=== PATIENT | female | born 1995 | race Caucasian/White ===

== ENCOUNTER 2020-04-12 12:49 | Outpatient (REF) | payer OTHER, SELFPAY | END 2020-04-12 12:50 | disposition home or self-care (01) | LOC: HO.LAB 12:49 | PROVIDERS: Visit Provider Internal Medicine | DX: Z20.822 Contact with and (suspected) exposure to COVID-19 (principal) | CPT/HCPCS: 36415; C9803; U0003 ==

== ENCOUNTER 2020-05-05 12:15 | Emergency (ER) | payer OTHER, SELFPAY ==
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
[2020-05-05 12:33] VITALS: BP 119/73; PULSE 100; RESP 16; TEMP 37.3; O2SAT 97; BMI 24.1
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
[2020-05-05] MEDS: oxyCODONE HCl Immed Release 5 MG TABLET PO (13:06)
[2020-05-05] MEDS: Acetaminophen 325 MG TABLET 975 MG PO (13:07)
[2020-05-05 13:35] LABS: UPreg QC Valid YES; Urine Pregnancy NEGATIVE (NEGATIVE)
[2020-05-05 15:27] VITALS: BP 115/73; PULSE 90; RESP 14; TEMP 36.8; O2SAT 97
== END 2020-05-05 16:36 | disposition home or self-care (01) ==
PROVIDERS: Physician Assistant; Emergency Provider Emergency Medicine Emergency Medical Services; PCP Internal Medicine
DX: R07.82 Intercostal pain (principal); R07.81 Pleurodynia; R05 Cough; R06.02 Shortness of breath; F17.200 Nicotine dependence, unspecified, uncomplicated; Z71.6 Tobacco abuse counseling; F12.90 Cannabis use, unspecified, uncomplicated
CPT/HCPCS: 71250; 81025; 99284

== ENCOUNTER → 2020-05-10 13:58 | Outpatient (BNVA) | payer OTHER, SELFPAY | PROVIDERS: Visit Provider Physician Assistant | DX: S82.892A Other fracture of left lower leg, initial encounter for closed fracture (principal); S42.001A Fracture of unspecified part of right clavicle, initial encounter for closed fracture | CPT/HCPCS: 99202 ==

== ENCOUNTER 2020-05-24 07:25 | Outpatient (REF) | payer OTHER, SELFPAY ==
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
== END 2020-05-24 07:26 | disposition home or self-care (01) ==
LOC: HO.HOSX 07:25
PROVIDERS: Visit Provider Physician Assistant
DX: S42.021G Displaced fracture of shaft of right clavicle, subsequent encounter for fracture with delayed healing (principal)
CPT/HCPCS: 73000; 99212

== ENCOUNTER 2020-05-30 07:10 | Day surgery (SDC) | payer OTHER, SELFPAY ==
[2020-05-29 09:50] VITALS: BMI 24.1
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
[2020-05-30] VITALS (10 sets, daily range): BP systolic 107–125; BP diastolic 51–73; PULSE 70–101; RESP 16–18; TEMP 36.3–37.2; O2SAT 94–97; BMI 24.1
--- NOTE | ~2020-05-30 | FL_ITS ---
EXAMINATION: XR FLUOROSCOPY WITH IMAGES CLINICAL INFORMATION: Right clavicular fracture, reduction. COMPARISON: Radiographs right clavicle 05/24/2020. TECHNIQUE: Fluoroscopy performed by Dr. aCrmelo Westfall. Fluoroscopy time: under 1 minute DAP: 0.0071 mGycm2 Images: 3 FINDINGS: The clavicular fracture is reduced with superior plate and multiple screws. Fracture fragments are in near-anatomic alignment and the hardware is intact. FL/FL guidance in OR IMPRESSION: Status post reduction right clavicular fracture.
--- NOTE | 2020-05-30 07:20 | MHC.SHP ---
Pre-Procedural Eval Section A The patient is an INPATIENT: No Changes since office visit: No Cold of Flu in the past 2 weeks, No New Medical Problems, No Changes in Medication and No Patient answered all questions The History & Physical has been completed within 30 days and I have reviewed it.: Yes Section B Chief Complaint: fx clavicle Allergies: Allergies Allergy/AdvReac Type Severity Reaction Status Date / Time metoclopramide [From REGLAN] Allergy Intermediate DISTONIC Verified 05/24/20 11:08 REACTION antiemetic in ED (unsure of Allergy Unknown anxiety Uncoded 05/17/20 13:55 na Plan I have reviewed the history and physical and performed a pertinent physical examination on my patient. No changes have occurred unless specified.
[2020-05-30 07:58] LABS: UPreg QC Valid YES; Urine Pregnancy NEGATIVE (NEGATIVE)
[2020-05-30] MEDS: Lactated Ringers 1,000 ML 100 ML IVCONT (08:56)
[2020-05-30] MEDS: Ketorolac Tromethamine 15 MG/ML VIAL IVPUSH (11:42)
[2020-05-30] MEDS: HYDROmorphone HCl 0.5 MG/0.5 ML SYRINGE 0.25 MG IVPUSH ×2 (12:04→12:17)
[2020-05-30] MEDS: oxyCODONE HCl Immed Release 5 MG TABLET PO (12:24)
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
== END 2020-05-30 13:35 | disposition home or self-care (01) ==
PROVIDERS: Nurse Practitioner; PCP Internal Medicine; Visit Provider Orthopaedic Surgery
PROC: (CPT 23515; principal; 2020-05-30 09:10)
DX: S42.021A Displaced fracture of shaft of right clavicle, initial encounter for closed fracture (principal); V49.9XXA Car occupant (driver) (passenger) injured in unspecified traffic accident, initial encounter; Y93.89 Activity, other specified; Y92.410 Unspecified street and highway as the place of occurrence of the external cause; Y99.8 Other external cause status; F12.90 Cannabis use, unspecified, uncomplicated; F17.210 Nicotine dependence, cigarettes, uncomplicated; Z87.81 Personal history of (healed) traumatic fracture; Z88.8 Allergy status to other drugs, medicaments and biological substances
CPT/HCPCS: 23515; 81025; C1713; J0131; J0690; J1100; J1170; J1885; J2250; J2405

== ENCOUNTER 2020-06-12 08:17 | Outpatient (REF) | payer OTHER, SELFPAY ==
--- NOTE | ~2020-06-12 | XR_ITS ---
EXAMINATION: RIGHT ANKLE AND RIGHT CLAVICLE X-RAY CLINICAL INFORMATION: Fractures COMPARISON: Previous right clavicle x-ray 05/24/2020 fluoroscopy exam 05/30/2020 TECHNIQUE: 2 views of the right clavicle and 3 views of the right ankle FINDINGS: Right clavicle: There is a new plate and screws transfixing the right mid clavicle fracture with anatomic alignment. Fracture line still seen. Orthopedic hardware unchanged. Soft tissues are unremarkable. Left ankle: Bone alignment is normal. No fracture or dislocation is seen. There is small soft tissue ossifications inferior to the medial malleolus likely related to old trauma. The ankle mortise is normal. Soft tissues are otherwise normal. XR/XR ankle LT min 3V IMPRESSION: Right clavicle: ORIF of right clavicle fracture. Left ankle: No acute fracture or dislocation.
--- NOTE | ~2020-06-12 | XR_ITS ---
EXAMINATION: RIGHT ANKLE AND RIGHT CLAVICLE X-RAY CLINICAL INFORMATION: Fractures COMPARISON: Previous right clavicle x-ray 05/24/2020 fluoroscopy exam 05/30/2020 TECHNIQUE: 2 views of the right clavicle and 3 views of the right ankle FINDINGS: Right clavicle: There is a new plate and screws transfixing the right mid clavicle fracture with anatomic alignment. Fracture line still seen. Orthopedic hardware unchanged. Soft tissues are unremarkable. Left ankle: Bone alignment is normal. No fracture or dislocation is seen. There is small soft tissue ossifications inferior to the medial malleolus likely related to old trauma. The ankle mortise is normal. Soft tissues are otherwise normal. XR/XR clavicle RT IMPRESSION: Right clavicle: ORIF of right clavicle fracture. Left ankle: No acute fracture or dislocation.
== END 2020-06-12 08:18 | disposition home or self-care (01) ==
LOC: HO.HOSX 08:17
PROVIDERS: Visit Provider Physician Assistant
DX: S42.001G Fracture of unspecified part of right clavicle, subsequent encounter for fracture with delayed healing (principal); S82.402D Unspecified fracture of shaft of left fibula, subsequent encounter for closed fracture with routine healing
CPT/HCPCS: 73000; 73610

== ENCOUNTER 2020-07-10 08:28 | Outpatient (REF) | payer OTHER, SELFPAY | END 2020-07-10 08:29 | disposition home or self-care (01) | LOC: HO.HOSX 08:28 | PROVIDERS: Visit Provider Physician Assistant | DX: Z13.89 Encounter for screening for other disorder (principal) ==

== ENCOUNTER 2020-07-18 08:28 | Outpatient (REF) | payer OTHER, SELFPAY | END 2020-07-18 08:29 | disposition home or self-care (01) | LOC: HO.HOSX 08:28 | PROVIDERS: Visit Provider Physician Assistant | DX: Z13.89 Encounter for screening for other disorder (principal) ==

== ENCOUNTER → 2020-10-30 11:31 | Outpatient (BNVA) | payer OTHER, SELFPAY | PROVIDERS: PCP Internal Medicine; Visit Provider Advanced Practice Midwife | DX: Z32.01 Encounter for pregnancy test, result positive (principal) | CPT/HCPCS: 81025; 99212 ==

== ENCOUNTER → 2020-11-13 14:05 | Outpatient (BNVA) | payer OTHER, SELFPAY | PROVIDERS: PCP Internal Medicine; Visit Provider Advanced Practice Midwife | DX: O99.331 Smoking (tobacco) complicating pregnancy, first trimester (principal); O99.341 Other mental disorders complicating pregnancy, first trimester; F41.8 Other specified anxiety disorders; O9A.211 Injury, poisoning and certain other consequences of external causes complicating pregnancy, first trimester; Z3A.08 8 weeks gestation of pregnancy; Z88.8 Allergy status to other drugs, medicaments and biological substances | CPT/HCPCS: 99212 ==

== ENCOUNTER 2020-11-29 13:06 | Outpatient (REF) | payer OTHER, SELFPAY ==
--- NOTE | ~2020-11-29 | US_ITS ---
EXAMINATION: OBSTETRICAL ULTRASOUND, FIRST TRIMESTER HISTORY: 25-year-old at 11.0 weeks of gestation NT screening COMPARISON: None TECHNIQUE: Real time transabdominal imaging with color and M-mode Doppler. FINDINGS: A single, live IUP CRL of 49.7 mm c/w 11.5wks is noted. Heart Rate: 169 beats per minute. Normal yolk sac seen. NT was 0.55.mm. NB Present The embryo appears sonographically wnl for this GA. Both maternal ovaries are seen and appear normal. GESTATIONAL AGE: 1. Established GA: 11.0 wks 2. GA from AUA: 11.5 wks ESTIMATED DATE OF DELIVERY: 1. Established KIKI: 06/20/2021 2. KIKI from A: 06/15/2021 US/US OB 1T nuc measure IMPRESSION: 1. A single live IUP 2. Size equals dates 3. NT of 0.55 mm MFM Consultation: I reviewed the ultrasound findings along with significance of NT measurement. The NT of less than 3mm is generally reassuring. However, the sensitivity for T21 detection is only 60%. I reviewed the availability of serum aneuploidy screening which includes cell-free DNA and placental protein based tests. I discussed the sensitivity, false-positive rate, and other limitations associated with each test. I also reviewed the availability of invasive diagnostic tests that are associated small but definite risk of miscarriage. We also reviewed the differences between screening tests and diagnostic tests. After our discussion, she opted for the First trimester screening that is based on cell-free DNA or non-invasive testing (NIPT). A follow up at 18-20 weeks for survey has been scheduled. Thank you very much for this referral. Total time 30 minutes. The time spent was devoted to counseling the patient about the disease and diagnosis, coordinating care including reviewing her records, pertinent lab data and studies, as well as discussing diagnostic evaluation and workup, plan therapeutic interventions and future disposition of care. This includes any additional research needed to obtain further information in formulating the plan of care of this patient. This note was generated with a voice recognition program. Please excuse any errors which may have been overlooked during my review of this note. Sometimes these errors may affect the content or meaning of a given sentence.
== END 2020-11-29 13:07 | disposition home or self-care (01) ==
LOC: HO.US 13:06
PROVIDERS: PCP Internal Medicine; Visit Provider Advanced Practice Midwife
DX: Z36.82 Encounter for antenatal screening for nuchal translucency (principal)
CPT/HCPCS: 76813

== ENCOUNTER 2020-12-02 10:21 | Outpatient (REF) | payer OTHER, SELFPAY ==
[2020-12-02 12:05] LABS: Hematocrit 37.2 % (37-47); Hemoglobin 12.8 g/dl (12.0-16.0); Mean Corpuscular HGB Conc 34.4 g/dl (31.0-35.0); Mean Platelet Volume 10.4 fL (9.4-12.3); Platelet Count 335 X10*3/uL (160-400); Red Cell Distribution Width 11.8 % (11.0-16.0); White Blood Count 10.8 X10*3/uL (4.8-10.8)
[2020-12-02 12:32] LABS: Syphilis Screen Nonreactive (Nonreactive)
[2020-12-02 14:00] LABS: Amphetamine Screen Urine Not Detected (Not Detect); Barbiturates, Urine Not Detected (Not Detect); Benzodiazepines Screen Urine Not Detected (Not Detect); Cannabinoid Screen Urine POSITIVE (Not Detect); Cocaine Screen Urine Not Detected (Not Detect); Fentanyl, urine Not Detected (Not Detect); Opiate Screen Urine Not Detected (Not Detect); Phencyclidine Screen Urine Not Detected (Not Detect)
[2020-12-03 08:56] LABS: HBsAGNum1 0.25 S/CO (0.00-0.99); HIV AB/AG Nonreactive (Nonreactive); HIV Num 1 0.08 S/CO (0.00-0.99); Hepatitis B Surface Antigen Negative (Negative); Rubella IgG Antibody 3.04 Index; Varicella IgG Antibody >4000.00 index; ~HepC Num1 0.17 S/CO (0.00-0.79); ~Hepatitis C Antibody Nonreactive (Nonreactive)
== END 2020-12-02 10:22 | disposition home or self-care (01) ==
LOC: HO.LAB 10:21
PROVIDERS: PCP Internal Medicine; Visit Provider Advanced Practice Midwife
DX: Z34.90 Encounter for supervision of normal pregnancy, unspecified, unspecified trimester (principal)
CPT/HCPCS: 80307; 85027; 86762; 86780; 86787; 86803; 86850; 86900; 86901; 87086; 87088; 87186; 87340; 87389

== ENCOUNTER 2020-12-04 11:51 | Outpatient (REF) | payer OTHER, SELFPAY ==
[2020-12-07 14:32] LABS: TS Negative Control Passed; TS Panel A 0; TS Panel B 0; TS Positive Control Passed; TSpotTB Negative (SeeBelow)
== END 2020-12-04 11:52 | disposition home or self-care (01) ==
LOC: HO.HMGCLDS 11:51
PROVIDERS: PCP Internal Medicine; Visit Provider Internal Medicine
DX: Z00.00 Encounter for general adult medical examination without abnormal findings (principal)
CPT/HCPCS: 36415; 86481

== ENCOUNTER 2021-01-06 10:12 | Outpatient (REF) | payer OTHER, SELFPAY ==
[2021-01-06 13:50] LABS: CT PCR NOT DETECTED (Not Detect.); NG PCR NOT DETECTED (Not Detect.)
[2021-01-07 11:38] LABS: BV Int Neg Control Negative (Negative); BV Int Pos Control Positive (Positive)
== END 2021-01-06 10:13 | disposition home or self-care (01) ==
LOC: HO.LAB 10:12
PROVIDERS: PCP Internal Medicine; Visit Provider Advanced Practice Midwife
DX: O99.332 Smoking (tobacco) complicating pregnancy, second trimester (principal); O99.322 Drug use complicating pregnancy, second trimester; F12.10 Cannabis abuse, uncomplicated; Z3A.24 24 weeks gestation of pregnancy; Z3A.16 16 weeks gestation of pregnancy; Z83.3 Family history of diabetes mellitus; Z88.8 Allergy status to other drugs, medicaments and biological substances
CPT/HCPCS: 87480; 87491; 87510; 87591; 87660; 88142; 99212

== ENCOUNTER → 2021-02-20 10:30 | Outpatient (BNVA) | payer OTHER, SELFPAY | PROVIDERS: PCP Internal Medicine; Visit Provider Advanced Practice Midwife | DX: Z34.82 Encounter for supervision of other normal pregnancy, second trimester (principal); Z3A.22 22 weeks gestation of pregnancy | CPT/HCPCS: 99212 ==

== ENCOUNTER → 2021-02-26 13:05 | Outpatient (BNVA) | payer OTHER, SELFPAY | PROVIDERS: PCP Internal Medicine; Visit Provider Advanced Practice Midwife | DX: O24.419 Gestational diabetes mellitus in pregnancy, unspecified control (principal); Z3A.23 23 weeks gestation of pregnancy | CPT/HCPCS: 99211 ==

== ENCOUNTER → 2021-03-05 12:15 | Outpatient (BNVA) | payer OTHER, SELFPAY | PROVIDERS: PCP Internal Medicine; Visit Provider Obstetrics & Gynecology | DX: Z34.82 Encounter for supervision of other normal pregnancy, second trimester (principal); Z3A.24 24 weeks gestation of pregnancy | CPT/HCPCS: 99212 ==

== ENCOUNTER 2021-03-12 14:06 | Outpatient (REF) | payer OTHER, SELFPAY | END 2021-03-12 14:07 | disposition home or self-care (01) | LOC: HO.LAB 14:06 | PROVIDERS: PCP Internal Medicine; Visit Provider Obstetrics & Gynecology | DX: O09.892 Supervision of other high risk pregnancies, second trimester (principal); R87.613 High grade squamous intraepithelial lesion on cytologic smear of cervix (HGSIL); O99.332 Smoking (tobacco) complicating pregnancy, second trimester; Z3A.25 25 weeks gestation of pregnancy; Z88.8 Allergy status to other drugs, medicaments and biological substances; Z83.3 Family history of diabetes mellitus | CPT/HCPCS: 57454; 88142; 99212 ==

== ENCOUNTER 2021-03-21 10:22 | Outpatient (REF) | payer OTHER, SELFPAY ==
--- NOTE | ~2021-03-21 | US_ITS ---
EXAMINATION: US OBSTETRICAL CLINICAL INFORMATION: A 25-year-old at the 27.0 weeks of gestation Screening for anomaly COMPARISON: 11/29/2020 TECHNIQUE: Real-time transabdominal ultrasound was performed using C1-5 megahertz transducer. FINDINGS: A single, active, fetus is seen in breech presentation. The placenta is anterior without previa, and the amniotic fluid volume is wnl. MEASUREMENTS: 1. Biparietal Diameter: 7.1 cm; 28.3 wks 2. Occipital Frontal Diameter: 10.0 cm 3. Head Circumference: 27.4 cm; 30.0 wks 4. Abdominal Circumference: 22.7 cm; 27.1 wks 5. Femur Length: 5.1 cm; 27.4 wks 6. Humerus Length: 5.3 cm; 30.4 wks 7. Tibia Length: 4.8 cm; 29.0 wks 8. Lateral ventricle: 0.48 cm 9. Cerebellum: 3.32 cm; 30.3 wks 10. Cisterna Magna: 0.8 cm 11. Nuchal Fold: N/A mm 12. Heart Rate: 151 beats per minute Rt ovary: Unable to visualize Lt ovary: Unable to visualize Cervical length 3.8 cm on T/A. GESTATIONAL AGE: 1. Established GA: 27.0 wks 2. GA from [facility]: 28.2 wks ESTIMATED DATE OF DELIVERY: 1. Established KIKI: The 06/20/2021 2. KIKI from [facility]: 06/15/2021 ANATOMY: The visualized anatomy includes but not limited to: 1. Cranium: Normal 2. Intracranial anatomy: cavum septum pellucidi, lateral ventricles, choroid plexus, cerebellum, posterior fossa, third and fourth ventricles. 3. face: orbits, lip/palate, profile, nasal bone 4. Heart: four-chamber view of the heart, ventricular septum, foramen ovale, pulmonary vein, left and right outflow tracts, three-vessel view, 3 vessel trachea view, aortic and ductal arches, situs.. 5. Diaphragm: Normal 6. Abdominal wall: Normal 7. Cord Insertion: Normal 8. Spine: Cervical, thoracic, lumbar, sacral. 9. Stomach: Normal size and shape 10. Right Kidney: Normal 11. Left Kidney: Normal 12. 3 vessel cord: Normal 13. Upper extremity: Open hands, fifth digit. 14. Lower extremity: Tibia, fibula, bilateral feet. 15. Bladder: Normal 16. Genitalia: Male, patient aware US/US OB /maternal detail IMPRESSION: 1. Single, living, intrauterine with appropriate biometry. 2. Normal survey DISCUSSION: I reviewed today's ultrasound findings. We discussed the limitations of ultrasound in diagnosing aneuploidy and other congenital abnormalities. I reviewed the differences between screening test and diagnostic test. Amniocentesis was discussed and declined. She was informed that the baseline incidence of congenital abnormalities is approximately 3-5%. Not all these conditions are diagnosable in utero. She had the normal of NT evaluation by me. Reportedly the NIPT was low risk. Although she she had the second trimester ultrasound at the [facility], the report is not available, and the images are missing. RECOMMENDATIONS: At this time, a follow-up has not been scheduled. Thank you for allowing me to participate in her care. Total time 30 minutes. The time spent was devoted to counseling the patient about the disease and diagnosis, coordinating care including reviewing her records, pertinent lab data and studies, as well as discussing diagnostic evaluation and workup, plan therapeutic interventions and future disposition of care. This includes any additional research needed to obtain further information in formulating the plan of care of this patient. This note was generated with a voice recognition program. Please excuse any errors which may have been overlooked during my review of this note. Sometimes these errors may affect the content or meaning of a given sentence.
== END 2021-03-21 10:23 | disposition home or self-care (01) ==
LOC: HO.US 10:22
PROVIDERS: PCP Internal Medicine; Visit Provider Obstetrics & Gynecology
DX: Z34.82 Encounter for supervision of other normal pregnancy, second trimester (principal); Z3A.27 27 weeks gestation of pregnancy
CPT/HCPCS: 76811

== ENCOUNTER 2021-04-17 12:18 | Outpatient (REF) | payer OTHER, SELFPAY ==
[2021-04-17 14:33] LABS: Hematocrit 30.6 % (37.0-47.0); Hemoglobin 10.1 g/dl (12.0-16.0); Mean Corpuscular Hemoglobin 30.7 pg (27.0-33.0); Mean Platelet Volume 9.9 fL (9.4-12.3); Platelet Count 310 X10*3/uL (160-400); Red Blood Count 3.29 X10*6/uL (4.20-5.50); Red Cell Distribution Width 13.1 % (11.0-16.0); White Blood Count 12.8 X10*3/uL (4.8-10.8)
[2021-04-17 14:55] LABS: Glucose 1 Hour PP 50gm Dose 110 mg/dL (60-140)
[2021-04-18 08:30] LABS: Syphilis Screen Nonreactive (Nonreactive)
== END 2021-04-17 12:19 | disposition home or self-care (01) ==
LOC: HO.LAB 12:18
PROVIDERS: PCP Internal Medicine; Visit Provider Obstetrics & Gynecology
DX: Z34.83 Encounter for supervision of other normal pregnancy, third trimester (principal); Z3A.30 30 weeks gestation of pregnancy
CPT/HCPCS: 36415; 85027; 86780; 99212

== ENCOUNTER 2021-05-01 12:52 | Outpatient (REF) | payer OTHER, SELFPAY ==
[2021-05-01 17:01] LABS: CT PCR NOT DETECTED (Not Detect.); NG PCR NOT DETECTED (Not Detect.)
== END 2021-05-01 12:53 | disposition home or self-care (01) ==
LOC: HO.LAB 12:52
PROVIDERS: PCP Internal Medicine; Visit Provider Obstetrics & Gynecology
DX: Z11.3 Encounter for screening for infections with a predominantly sexual mode of transmission (principal); N89.8 Other specified noninflammatory disorders of vagina
CPT/HCPCS: 87491; 87591; 99212

== ENCOUNTER → 2021-05-19 09:07 | Outpatient (BNVA) | payer OTHER, SELFPAY | PROVIDERS: Visit Provider Advanced Practice Midwife | DX: O99.333 Smoking (tobacco) complicating pregnancy, third trimester (principal); F17.210 Nicotine dependence, cigarettes, uncomplicated; O99.513 Diseases of the respiratory system complicating pregnancy, third trimester; J45.909 Unspecified asthma, uncomplicated; O99.343 Other mental disorders complicating pregnancy, third trimester; F41.8 Other specified anxiety disorders; Z3A.35 35 weeks gestation of pregnancy | CPT/HCPCS: 81003; 99212 ==

== ENCOUNTER → 2021-07-18 09:50 | Outpatient (BNVA) | payer OTHER, SELFPAY | PROVIDERS: PCP Internal Medicine; Visit Provider Advanced Practice Midwife | DX: Z39.2 Encounter for routine postpartum follow-up (principal); Z30.42 Encounter for surveillance of injectable contraceptive; R87.613 High grade squamous intraepithelial lesion on cytologic smear of cervix (HGSIL) | CPT/HCPCS: 99212 ==

== ENCOUNTER 2021-08-13 14:29 | Outpatient (REF) | payer OTHER, SELFPAY | END 2021-08-13 14:30 | disposition home or self-care (01) | LOC: HO.LAB 14:29 | PROVIDERS: Visit Provider Obstetrics & Gynecology | DX: R87.613 High grade squamous intraepithelial lesion on cytologic smear of cervix (HGSIL) (principal) | CPT/HCPCS: 57454; 81025; 88142; 88305 ==

== ENCOUNTER → 2021-09-17 14:58 | Outpatient (BNVA) | payer OTHER, SELFPAY | PROVIDERS: PCP Internal Medicine; Visit Provider Obstetrics & Gynecology | DX: R87.613 High grade squamous intraepithelial lesion on cytologic smear of cervix (HGSIL) (principal) | CPT/HCPCS: 99212 ==

== ENCOUNTER 2022-03-09 11:07 | Outpatient (REF) | payer OTHER, SELFPAY ==
[2022-03-13 05:48] LABS: HPV mRNA E6/E7 rflx Not Detected (Not Detected)
== END 2022-03-09 11:08 | disposition home or self-care (01) ==
LOC: HO.LNP 11:07
PROVIDERS: PCP Internal Medicine; Visit Provider Obstetrics & Gynecology
DX: Z12.4 Encounter for screening for malignant neoplasm of cervix (principal); Z11.51 Encounter for screening for human papillomavirus (HPV); R87.613 High grade squamous intraepithelial lesion on cytologic smear of cervix (HGSIL)
CPT/HCPCS: 57454; 81025; 87624; 88142; 88305

== ENCOUNTER → 2022-05-21 14:31 | Outpatient (BNVA) | payer OTHER, SELFPAY | PROVIDERS: PCP Internal Medicine; Visit Provider Advanced Practice Midwife | DX: Z32.01 Encounter for pregnancy test, result positive (principal) | CPT/HCPCS: 81025; 99212 ==

== ENCOUNTER 2022-05-22 13:32 | Outpatient (REF) | payer OTHER, SELFPAY ==
[2022-05-22 16:13] LABS: HCG Quantitative 13869 mIU/mL
== END 2022-05-22 13:33 | disposition home or self-care (01) ==
LOC: HO.LAB 13:32
PROVIDERS: PCP Internal Medicine; Visit Provider Advanced Practice Midwife
DX: Z34.90 Encounter for supervision of normal pregnancy, unspecified, unspecified trimester (principal)
CPT/HCPCS: 36415; 84702

== ENCOUNTER 2022-05-28 12:41 | Outpatient (REF) | payer OTHER, SELFPAY ==
--- NOTE | ~2022-05-28 | US_ITS ---
EXAMINATION: US OBSTETRICAL ULTRASOUND CLINICAL INFORMATION: needs dating. COMPARISON: None available. LMP: Unknown. Gestational age by maternal dates is unknown. Estimated date of delivery by maternal dates is unknown. TECHNIQUE: Transabdominal ultrasound was performed. FINDINGS: There is a single intrauterine gestational sac with visible yolk sac, embryo/fetus, and cardiac activity. There is an area of subchorionic hemorrhage seen adjacent to the gestational sac measuring 1.8 x 1.6 x 1.0 cm. HR: 165 beats per minute. CRL (crown rump length): 3.23 cm (10 weeks 1 day +/- 4 days). KIKI (estimated date of delivery): 12/23/2022 +/- 4 days. MATERNAL ADNEXA: The right maternal ovary measures 2.8 x 2.5 x 1.6 cm. The left maternal ovary measures 2.8 x 2.5 x 1.6 which includes a 1.3 x 1.1 x 1.2 cm cyst. There is no significant maternal adnexal mass. No maternal pelvic ascites. US/US OB <= 14 weeks fetus IMPRESSION: 1. Single intrauterine gestation with ultrasound gestational age of 10 weeks 1 day +/- 4 days. 2. Estimated date of delivery is 12/23/2022 +/- 4 days. 3. Subchorionic hemorrhage is present. 4. No maternal adnexal mass or pelvic ascites.
== END 2022-05-28 12:42 | disposition home or self-care (01) ==
LOC: HO.HMGCX 12:41
PROVIDERS: PCP Internal Medicine; Visit Provider Advanced Practice Midwife
DX: Z34.91 Encounter for supervision of normal pregnancy, unspecified, first trimester (principal)
CPT/HCPCS: 76801

== ENCOUNTER → 2022-06-04 12:53 | Outpatient (BNVA) | payer OTHER, SELFPAY | PROVIDERS: PCP Internal Medicine; Visit Provider Advanced Practice Midwife ==

== ENCOUNTER → 2022-06-24 13:33 | Outpatient (BNVA) | payer OTHER, SELFPAY | PROVIDERS: PCP Internal Medicine; Visit Provider Advanced Practice Midwife ==

== ENCOUNTER 2022-06-24 14:25 | Outpatient (REF) | payer OTHER, SELFPAY ==
--- NOTE | ~2022-06-24 | US_ITS ---
EXAMINATION: US OBSTETRICAL ULTRASOUND CLINICAL INFORMATION: Spotting COMPARISON: Previous OB ultrasound 05/28/2022. LMP: 04/10/2022. Gestational age by maternal dates is 10 weeks 5 days. Estimated date of delivery by maternal dates is 01/15/2023. Prior ultrasound indicates estimated date of delivery 12/23/2022 +/- 4 days TECHNIQUE: Transabdominal abdominal OB ultrasound FINDINGS: There is a single viable intrauterine . HR: 157 beats per minute. CRL (crown rump length): 7.3 cm (13 weeks 3 days +/- 4 days). KIKI (estimated date of delivery): 12/27/2022 +/- 4 days. There is a posterior placenta. MATERNAL ADNEXA: The right maternal ovary measures 3.2 x 1.5 x 2.4 cm. The left maternal ovary measures 3.1 x 1.2 x 2.1 cm. There is no significant maternal adnexal mass. No maternal pelvic ascites. US/US OB <= 14 weeks fetus IMPRESSION: 1. Single intrauterine gestation with ultrasound gestational age of 13 weeks 3 days +/- 4 days. 2. Estimated date of delivery is 12/27/2022 +/- 4 days. 3. No maternal adnexal mass or pelvic ascites.
== END 2022-06-24 14:26 | disposition home or self-care (01) ==
LOC: HO.US 14:25
PROVIDERS: Visit Provider Advanced Practice Midwife
DX: O26.851 Spotting complicating pregnancy, first trimester (principal); Z3A.10 10 weeks gestation of pregnancy
CPT/HCPCS: 76801; 99212

== ENCOUNTER → 2022-06-25 13:43 | Outpatient (BNVA) | payer OTHER, SELFPAY | PROVIDERS: Visit Provider Advanced Practice Midwife | DX: Z34.81 Encounter for supervision of other normal pregnancy, first trimester (principal); Z3A.14 14 weeks gestation of pregnancy | CPT/HCPCS: 99212 ==

== ENCOUNTER → 2022-07-08 11:20 | Outpatient (BNVA) | payer OTHER, SELFPAY | PROVIDERS: Visit Provider Advanced Practice Midwife | DX: O21.9 Vomiting of pregnancy, unspecified (principal); O99.342 Other mental disorders complicating pregnancy, second trimester; F43.21 Adjustment disorder with depressed mood; F41.9 Anxiety disorder, unspecified; F32.A Depression, unspecified; O99.332 Smoking (tobacco) complicating pregnancy, second trimester; F17.210 Nicotine dependence, cigarettes, uncomplicated; Z3A.16 16 weeks gestation of pregnancy; F12.20 Cannabis dependence, uncomplicated | CPT/HCPCS: 81003; 99212 ==

== ENCOUNTER → 2022-08-05 10:40 | Outpatient (BNVA) | payer OTHER, SELFPAY | PROVIDERS: Visit Provider Advanced Practice Midwife | DX: Z34.82 Encounter for supervision of other normal pregnancy, second trimester (principal); Z3A.20 20 weeks gestation of pregnancy | CPT/HCPCS: 81003; 99212 ==

== ENCOUNTER → 2022-08-19 14:59 | Outpatient (BNVA) | payer OTHER, SELFPAY | PROVIDERS: Visit Provider Obstetrics & Gynecology | DX: O99.342 Other mental disorders complicating pregnancy, second trimester (principal); F41.9 Anxiety disorder, unspecified; F32.A Depression, unspecified; O99.012 Anemia complicating pregnancy, second trimester; D64.9 Anemia, unspecified; O99.332 Smoking (tobacco) complicating pregnancy, second trimester; F17.200 Nicotine dependence, unspecified, uncomplicated; Z63.4 Disappearance and death of family member; Z3A.22 22 weeks gestation of pregnancy | CPT/HCPCS: 99212 ==

== ENCOUNTER → 2022-09-25 14:33 | Outpatient (BNVA) | payer OTHER, SELFPAY | PROVIDERS: PCP Internal Medicine; Visit Provider Advanced Practice Midwife | DX: O99.332 Smoking (tobacco) complicating pregnancy, second trimester (principal); F17.210 Nicotine dependence, cigarettes, uncomplicated; O99.342 Other mental disorders complicating pregnancy, second trimester; F43.21 Adjustment disorder with depressed mood; Z3A.27 27 weeks gestation of pregnancy | CPT/HCPCS: 81003; 99212 ==

== ENCOUNTER 2023-12-06 10:10 | Outpatient (AMB) | payer MEDICAID, SELFPAY ==
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
[2023-12-06 10:21] VITALS: BP 100/60; BMI 34.1
== END 2023-12-06 10:47 | disposition home or self-care (01) ==
PROVIDERS: PCP Internal Medicine; Visit Provider Obstetrics & Gynecology
DX: Z30.09 Encounter for other general counseling and advice on contraception (principal)
CPT/HCPCS: 99213

== ENCOUNTER → 2023-12-06 10:10 | Outpatient (BNVA) | payer MEDICAID, SELFPAY | PROVIDERS: PCP Internal Medicine; Visit Provider Obstetrics & Gynecology | DX: Z30.09 Encounter for other general counseling and advice on contraception (principal) | CPT/HCPCS: 99212 ==

== ENCOUNTER 2023-12-13 10:28 | Outpatient (AMB) | payer OTHER, SELFPAY ==
[2023-12-13 10:31] VITALS: BP 124/80; PULSE 82; O2SAT 98; BMI 34.1
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
== END 2023-12-13 11:20 | disposition home or self-care (01) ==
PROVIDERS: PCP Internal Medicine; Visit Provider Physician Assistant
DX: S99.922A Unspecified injury of left foot, initial encounter (principal); M79.672 Pain in left foot

== ENCOUNTER → 2023-12-13 10:28 | Outpatient (BNVA) | payer OTHER, SELFPAY | PROVIDERS: PCP Internal Medicine ==

== ENCOUNTER 2023-12-13 10:49 | Outpatient (REF) | payer OTHER, SELFPAY ==
--- NOTE | ~2023-12-13 | XR_ITS ---
EXAMINATION: XR FOOT, LEFT CLINICAL INFORMATION: Left foot injury and pain COMPARISON: Left ankle x-ray on 06/12/2020 TECHNIQUE: AP, lateral, and oblique views of the left foot. FINDINGS: BONES: Bony structures are intact. A well-corticated bone body is seen at medial proximal dorsal border of the left navicular. There is no focal bone destruction or periosteal reaction seen. JOINTS: Alignment of joints is normal. SOFT TISSUE: Soft tissue is normal. No radiopaque foreign body or abnormal air collection is seen. XR/XR foot LT min 3V IMPRESSION: 1. Interval broken off of the medial dorsal proximal left navicular osteophyte, forming a loose bone body. 2. No acute fracture or dislocation or signs of osteomyelitis are found. Electronically signed by: Raina Dinero MD 12/13/2023 12:36 PM EDT
== END 2023-12-13 10:50 | disposition home or self-care (01) ==
LOC: HO.HMGCX 10:49
PROVIDERS: PCP Internal Medicine; Visit Provider Physician Assistant
DX: S99.922A Unspecified injury of left foot, initial encounter (principal)
CPT/HCPCS: 73630; 99212

== ENCOUNTER 2023-12-29 13:50 | Outpatient (AMB) | payer OTHER, SELFPAY ==
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
[2023-12-29 14:13] VITALS: BMI 34.1
== END 2023-12-29 14:33 | disposition home or self-care (01) ==
PROVIDERS: PCP Internal Medicine; Visit Provider Physician Assistant
DX: S82.402A Unspecified fracture of shaft of left fibula, initial encounter for closed fracture (principal); S42.009G Fracture of unspecified part of unspecified clavicle, subsequent encounter for fracture with delayed healing
CPT/HCPCS: 99213; G2211

== ENCOUNTER → 2023-12-29 13:50 | Outpatient (BNVA) | payer OTHER, SELFPAY | PROVIDERS: PCP Internal Medicine; Visit Provider Physician Assistant | DX: M79.672 Pain in left foot (principal); S82.402A Unspecified fracture of shaft of left fibula, initial encounter for closed fracture; X58.XXXA Exposure to other specified factors, initial encounter; Y93.9 Activity, unspecified; Y92.9 Unspecified place or not applicable; Y99.9 Unspecified external cause status | CPT/HCPCS: 99212 ==

== ENCOUNTER 2024-01-04 10:24 | Outpatient (AMB) | payer OTHER, SELFPAY ==
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
[2024-01-04 10:33] VITALS: BMI 33.7
== END 2024-01-04 11:23 | disposition home or self-care (01) ==
LOC: HO.HWS 10:24
PROVIDERS: PCP Internal Medicine; Visit Provider Obstetrics & Gynecology
DX: Z30.2 Encounter for sterilization (principal)
CPT/HCPCS: 99213

== ENCOUNTER → 2024-01-04 10:24 | Outpatient (BNVA) | payer OTHER, SELFPAY | PROVIDERS: PCP Internal Medicine; Visit Provider Obstetrics & Gynecology | DX: Z30.2 Encounter for sterilization (principal) | CPT/HCPCS: 99212 ==

== ENCOUNTER 2024-01-14 05:37 | Day surgery (SDC) | payer OTHER, SELFPAY ==
[2024-01-12 09:17] VITALS: BMI 33.8
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
[2024-01-14] VITALS (11 sets, daily range): BP systolic 100–116; BP diastolic 58–65; PULSE 69–85; RESP 12–20; TEMP 36.1–36.9; O2SAT 92–96; BMI 34.6
[2024-01-14 06:20] LABS: UPreg QC Valid YES; Urine Pregnancy NEGATIVE (NEGATIVE)
[2024-01-14] MEDS: Lactated Ringers 1,000 ML 100 ML IVCONT (06:50)
--- NOTE | 2024-01-14 07:28 | MHC.SHP ---
Pre-Procedural Eval Section A - 24 Hr Update-Section A only Date of Service: 01/14/24 The patient is an INPATIENT: No Changes since office visit: No Cold of Flu in the past 2 weeks, No New Medical Problems, No Changes in Medication and No Patient answered all questions The patient has been examined within 24 hours of the surgical procedure. The History & Physical has been completed within 30 days and I have reviewed it.: Yes Section B - Complete if H&P > 30 days Chief Complaint: Encounter for other general counseling and advice Allergies: Allergies Allergy/AdvReac Type Severity Reaction Status Date / Time metoclopramide [From REGLAN] Allergy Intermediate DISTONIC Verified 01/14/24 06:15 REACTION antiemetic Allergy Intermediate anxiety-given Uncoded 01/14/24 06:15 in ED-pt.unsure of name Plan Diagnosis/Plan: Unchanged I have reviewed the history and physical and performed a pertinent physical examination on my patient. No changes have occurred unless specified. Time Spent With Patient Time: Total time managing care of this patient today ____ minutes.
--- NOTE | 2024-01-14 08:52 | PM.OP ---
Brief Operative Note Date of Service: 01/14/24 Pre-op diagnosis: Completed family requesting permanent sterilization Post-op diagnosis: same Procedure: Laparoscopic bliateral salpingectomy Surgeon: Sushant Birmingham MD Anesthesia: GETA Was an Carpenter Cradle And Dolly used for this Procedure?: No Estimated blood loss (mL): 0 Pathology: other (Right & left fallopian tubes) Condition: stable Disposition: PACU
--- NOTE | 2024-01-14 08:52 | W.PM.OPN ---
Operative Note Operative Note Date of Service: 01/14/24 Narrative: PREOPERATIVE DIAGNOSIS:?Completed family requesting?permanent sterilization POSTOPERATIVE DIAGNOSIS:?Completed family requesting?permanent sterilization QBL: Minimal Anesthesia: GETA SURGEON:? Sushant Birmingham MD?? Livestock Yard Attendant: Complications: None Pathology: Right and left Fallopian tubes? DESCRIPTION OF PROCEDURE:?The patient was taken to the OR where general anesthesia was easily obtained. The patient was then prepped and draped in a sterile fashion and placed in dorsal lithotomy position. A speculum was introduced into the patient?s vagina for cervical visualization. Once the cervix was visualized, a single-toothed tenaculum was applied to the upper lip of the cervix, and a Humi manipulator was introduced into the patient?s cervix. The single tooth tenaculum was then removed and hemostasis was assured?using pressure. a Willams catheter?was inserted and clear urine started draining. Gloves were changed to clean ones. Attention was then drawn to the abdomen where a 10 mm longitudinal incision was done intra umbilical and carried down all the way to the fascia, which was tented?up using 2 Shakira clamps and was nicked in the midline and then extended on both end of the incision?, them using 2 pick?ups the peritoneum?was entered with Metzenbaum scissors and under direct visualization, a 10 mm Whitney trocar was introduced into the patient?s abdomen. Once intraperitoneal placement was confirmed with direct visualization, pneumoperitoneum was started & was easily obtained.Then, two fingerbreadths above the pubic symphysis and towards the?right lower quadrant, under direct visualization, a 5 mm trocar was then introduced into the patient?s abdomen. and a 3rd one on the left?lower quadrant was placed?in a similar manner. The patient was placed in Trendelenburg position, Inspection revealed normal pelvic structures & bilateral ovaries and fallopian tubes. Attention was then drawn to the left fallopian tube. The IP ligament was identified and fallopian tube was then grasped by the fimbria and incised from the mesosalpinx using ligasure device, using cautery for hemostasis and cutting afterwards a bite at a time all the way to the cornual end of the left tube. The same was done?on the?right fallopian tube. Good hemostasis was noted from both fallopian tube sites and the operative site. Specimen were then removed from the patient?s abdomen. Copious irrigation was done. Once good hemostasis was noted from the patient?s abdomen, pneumoperitoneum was deflated and all trocars were removed. Infraumbilical fascia was closed with 0 Vicryl and interrupted suture. The skin was closed with 4-0 Vicryl. The Right and left?lower quadrant ports were closed with 0 Vicryl. Bupivicaine 0.25 10 cc were injected subcuticularly in the 3 incisions. Then speculum was put back in the vagina inspection revealed?hemostasis at the site of the tenaculum, the?humi manipulator was removed? and Willams was draining clear urine was taken out too. Sponge, lap and needle counts were correct x2. The patient was taken to the recovery room in stable condition.
[2024-01-14] MEDS: fentaNYL citrate/PF 100 MCG/2 ML VIAL 25 MCG IVPUSH ×2 (09:26→09:35)
[2024-01-14] MEDS: ondansetron HCL 4 MG/2 ML VIAL IVPUSH (09:35)
== END 2024-01-14 10:42 | disposition home or self-care (01) ==
PROVIDERS: PCP Internal Medicine; Visit Provider Obstetrics & Gynecology
PROC: (CPT 58661; 2024-01-14 07:30)
DX: Z30.2 Encounter for sterilization (principal); F41.8 Other specified anxiety disorders; J45.909 Unspecified asthma, uncomplicated; H55.00 Unspecified nystagmus; Z79.899 Other long term (current) drug therapy; Z88.8 Allergy status to other drugs, medicaments and biological substances; Z98.890 Other specified postprocedural states; F17.210 Nicotine dependence, cigarettes, uncomplicated
CPT/HCPCS: 58661; 81025; 88302; J0131; J1100; J2003; J2250; J2405; J2704; J2795; J3010

== ENCOUNTER → 2024-01-14 05:37 | Outpatient (BNV) | payer OTHER, SELFPAY | PROVIDERS: PCP Internal Medicine; Visit Provider Obstetrics & Gynecology | DX: Z30.2 Encounter for sterilization (principal) | CPT/HCPCS: 58661 ==

== ENCOUNTER 2024-01-17 12:47 | Outpatient (AMB) | payer OTHER, SELFPAY ==
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
[2024-01-17 12:54] VITALS: BP 120/72; BMI 34.6
== END 2024-01-17 12:59 | disposition home or self-care (01) ==
LOC: HO.HWS 12:48
PROVIDERS: PCP Internal Medicine; Visit Provider Obstetrics & Gynecology
DX: L25.9 Unspecified contact dermatitis, unspecified cause (principal)
CPT/HCPCS: 99213

== ENCOUNTER → 2024-01-17 12:47 | Outpatient (BNVA) | payer OTHER, SELFPAY | PROVIDERS: PCP Internal Medicine; Visit Provider Obstetrics & Gynecology | DX: Z48.816 Encounter for surgical aftercare following surgery on the genitourinary system (principal); L25.9 Unspecified contact dermatitis, unspecified cause | CPT/HCPCS: 99212 ==

== ENCOUNTER 2024-01-27 09:37 | Outpatient (AMB) | payer OTHER, SELFPAY ==
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
[2024-01-27 10:22] VITALS: BMI 34.5
== END 2024-01-27 10:35 | disposition home or self-care (01) ==
LOC: HO.HWS 09:37
PROVIDERS: PCP Internal Medicine; Visit Provider Obstetrics & Gynecology
DX: Z30.2 Encounter for sterilization (principal)
CPT/HCPCS: 99213

== ENCOUNTER → 2024-01-27 09:37 | Outpatient (BNVA) | payer OTHER, SELFPAY | PROVIDERS: PCP Internal Medicine; Visit Provider Obstetrics & Gynecology | DX: Z30.2 Encounter for sterilization (principal) | CPT/HCPCS: 99212 ==

== ENCOUNTER 2024-06-21 15:49 | Outpatient (AMB) | payer OTHER, SELFPAY ==
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
[2024-06-21 16:01] VITALS: BP 120/70; BMI 34.4
--- OUTSIDE RECORDS SUMMARY | 2024-06-21 17:53 | XMS_ITS | Clinical Summary ---
Author Organization [facility] Address [address] [place] [address] Phone Care Team Providers Care Circular Stuffer Name Role Phone Physician, No Pcp Primary Care Provider Unavaila ble Allergies Active Allergy Reactions Criticality Noted Date Comments Methylphenidate Hcl 05/10/2021 Medications vitamin iron fum-folic acid 27-1 mg per tablet Take 1 tablet by mouth 1 (one) time each day. Active ferrous sulfate 325 mg (65 mg iron) tablet Take 325 mg by mouth 1 (one) time each day with breakfast. Active Social History Tobacco Use Types Packs/Day Years Used Date Smoking Tobacco: Every Day Cigarettes Smokeless Tobacco: Former Tobacco Cessation:Ready to Q uit: Not Asked; Counseling Given: Not Answered Alcohol Use Standard Drinks/Week Comments Never 0 (1 standard drink = 0.6 oz pur e alcohol) Comments Unknown Sex and Gender Information Value Date Recorded Sex Assigned at Female 05/10/2021 6:28 PM EST Legal Sex Female 5:49 PM EST Gender Identity Female 05/10/2021 6:28 PM EST Sexual Orientation Not on file Obstetrics History Para Term AB IAB SAB Ectopic Multiple Livin g Live Births 4 3 Date Outcome GA Total Labor Labor/2nd/3rd Weight Sex Type Anes PTL Amber A1 A5 Name Clin Para Para Para Last Filed Vital Signs Vital Sign Reading Time Taken Comments Blood Pressure 144/90 03/21/2024 11:16 PM EST Pulse 84 03/21/2024 11:16 PM EST Temperature 36.8 ??C (98.2 ??F) 03/21/2024 11:[address] Respiratory Rate 16 03/21/2024 11:16 PM EST Oxygen Saturation 100% 03/21/2024 11:16 PM EST Inhaled Oxygen Concentration - - Weight 93.4 kg (206 lb) 03/21/2024 4:38 PM EST Height 165.1 cm (5' 5 ) 03/21/2024 4:38 PM EST Body Mass Index 34.28 03/21/2024 4:38 PM EST Plan of Treatment Health Maintenance Due Date Last Done Comments Hepatitis B Vaccines (1 of 3 - 19+ 3-dose series) 2012 Pneumococcal Vaccine: Pediatrics (0 to 5 Years) and At-Risk Patients (6 to 64 Years) (1 of 2 - PCV) 2012 Cervical Cancer Screening: P ap Smear 2014 Cholesterol Screening (Lipid Panel) 05/10/2021 Depression Screening 05/10/2021 HIV Screening 05/10/2021 Hepatitis C Screening 05/10/2021 Social Influencers of Health Screening 05/10/2021 COVID-19 Vaccine ( - 2023-2 5 season) 2023 Influenza Vaccine (#1) 2023 DTaP,Tdap,and Td Vaccines (3 - Td or Tdap) 10/29/2032 10/29/2022, 04/30/2020 HIB Vaccines Aged Out No longer eligi ble based on patient's age to complete this topic HPV Vaccines Aged Out No longer eligi ble based on patient's age to complete this topic Hepatitis A Vaccines Aged Out No long er eligible based on patient's age to complete this topic IPV Vaccines Aged Out No longer eligi ble based on patient's age to complete this topic MMR Vaccines Aged Out No longer eligi ble based on patient's age to complete this topic Meningococcal ACWY Vaccine Aged Out N o longer eligible based on patient's age to complete this topic Meningococcal B Vacine Aged Out No lo nger eligible based on patient's age to complete this topic RSV Immunization Patients Under 20 months Aged Out No longer eligible b ased on patient's age to complete this topic Varicella Vaccines Aged Out No longer eligible based on patient's age to complete this topic Insurance MEDICAID - [place] Care Teams Circular Stuffer Relationship Specialty Start Date End Date Physician, No Pcp PCP - General 06/06/21
== END 2024-06-21 16:28 | disposition home or self-care (01) ==
LOC: HO.HMCH 15:49
PROVIDERS: PCP Internal Medicine; Visit Provider Internal Medicine
DX: Z00.00 Encounter for general adult medical examination without abnormal findings (principal); F32.2 Major depressive disorder, single episode, severe without psychotic features; N39.41 Urge incontinence

== ENCOUNTER → 2024-06-21 15:49 | Outpatient (BNVA) | payer OTHER, SELFPAY | PROVIDERS: PCP Internal Medicine; Visit Provider Internal Medicine | DX: Z00.00 Encounter for general adult medical examination without abnormal findings (principal); F32.2 Major depressive disorder, single episode, severe without psychotic features; N39.41 Urge incontinence | CPT/HCPCS: 96127; 99212; 99395 ==

== ENCOUNTER 2024-08-07 08:39 | Outpatient (AMB) | payer OTHER, SELFPAY ==
--- OUTSIDE RECORDS SUMMARY | 2024-08-07 08:46 | XMS_ITS | Clinical Summary ---
Author Organization [facility] Address [address] [place] [address] Phone Care Team Providers Care Tooth Cutter Pinion Name Role Phone Physician, No Pcp Primary [...] - 2023-2 5 season) 2023 Influenza Vaccine (Season Ended) 2024 DTaP,Tdap,and Td Vaccines (3 - Td or [...] age to complete this topic Meningococcal B Vaccine Aged Out No l onger eligible based on patient's age to complete this topic RSV Immunization Patients Under 20 months Aged Out No longer eligible b ased on patient's age to complete this topic Varicella Vaccines Aged Out No longer eligible based on patient's age to complete this topic Insurance MEDICAID - [place] Care Teams Tooth Cutter Pinion Relationship Specialty Start Date End Date Physician, No Pcp PCP - General 06/06/21
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
[2024-08-07 08:50] VITALS: BP 150/70; PULSE 80; TEMP 36.2; O2SAT 97; BMI 34.0
[2024-08-07 09:15] VITALS: BP 130/70
== END 2024-08-07 09:22 | disposition home or self-care (01) ==
LOC: HO.HMCH 08:39
PROVIDERS: PCP Internal Medicine; Visit Provider Physician Assistant
DX: I10 Essential (primary) hypertension (principal); K21.9 Gastro-esophageal reflux disease without esophagitis; E66.811 Obesity, class 1; Z68.34 Body mass index [BMI] 34.0-34.9, adult

== ENCOUNTER → 2024-08-07 08:39 | Outpatient (BNVA) | payer OTHER, SELFPAY | PROVIDERS: PCP Internal Medicine; Visit Provider Physician Assistant | DX: I10 Essential (primary) hypertension (principal); K21.9 Gastro-esophageal reflux disease without esophagitis; E66.811 Obesity, class 1; Z68.34 Body mass index [BMI] 34.0-34.9, adult | CPT/HCPCS: 99212 ==

== ENCOUNTER 2024-08-17 12:54 | Outpatient (REF) | payer OTHER, SELFPAY ==
[2024-08-17 17:08] LABS: Urine Cytology See Pathology rpt
== END 2024-08-17 12:55 | disposition home or self-care (01) ==
LOC: HO.LNP 12:54
PROVIDERS: PCP Internal Medicine; Visit Provider Nurse Practitioner Family
DX: R31.9 Hematuria, unspecified (principal); Z13.9 Encounter for screening, unspecified
CPT/HCPCS: 51798; 81003; 88112; 99202

== ENCOUNTER 2024-08-17 12:54 | Outpatient (AMB) | payer OTHER, SELFPAY ==
--- OUTSIDE RECORDS SUMMARY | 2024-08-17 12:57 | XMS_ITS | Clinical Summary ---
Author Organization [facility] Address [address] [place] [address] Phone Care Team Providers Care Materials Scientist Name Role Phone Physician, No Pcp Primary [...] to complete this topic Insurance MEDICAID - [place] Care Teams Materials Scientist Relationship Specialty Start Date End Date Physician, No Pcp PCP - General 06/06/21
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
== END 2024-08-17 14:06 | disposition home or self-care (01) ==
LOC: HO.HUSH 12:55
PROVIDERS: PCP Internal Medicine; Visit Provider Nurse Practitioner Family
DX: N39.41 Urge incontinence (principal); R31.29 Other microscopic hematuria; F17.200 Nicotine dependence, unspecified, uncomplicated; Z13.9 Encounter for screening, unspecified
CPT/HCPCS: 99204

== ENCOUNTER 2024-09-09 10:34 | Outpatient (REF) | payer OTHER, SELFPAY ==
[2024-09-09 11:37] LABS: Alanine Aminotransferase 41 U/L (0-31); Albumin Level 4.3 g/dL (3.5-5.0); Alkaline Phosphatase 62 U/L (39-117); Anion Gap 10 (12-20); Aspartate Amino Transferase 34 U/L (5-31); Bilirubin Total 0.3 mg/dL (0.0-1.0); Blood Urea Nitrogen 9 mg/dL (9-16); Calcium 8.9 mg/dL (8.4-10.2); Carbon Dioxide 24 mmol/L (22-29); Chloride 109 mmol/L (96-108); Cholesterol 131 mg/dL (<200); Estimated Glomerular Filt Rate > 60; Glucose Fasting 87 mg/dL (60-99); HDL Cholesterol 43 mg/dL (>40); LDL Cholesterol Calculated 72 mg/dL (<100); Potassium 3.9 mmol/L (3.3-5.1); Sodium 139 mmol/L (135-145); Total Protein 7.3 g/dL (6.5-8.0); Triglycerides 83 mg/dL (<150)
== END 2024-09-09 10:35 | disposition home or self-care (01) ==
LOC: HO.LAB 10:34
PROVIDERS: Nurse Practitioner Family; PCP Internal Medicine; Visit Provider Internal Medicine
DX: Z00.00 Encounter for general adult medical examination without abnormal findings (principal)
CPT/HCPCS: 36415; 80053; 80061

== ENCOUNTER 2024-11-14 12:56 | Outpatient (REF) | payer OTHER, SELFPAY ==
--- NOTE | ~2024-11-14 | CT_ITS ---
EXAMINATION: CT ABDOMEN AND PELVIS WITHOUT AND WITH CONTRAST CLINICAL INFORMATION: F17.200 - Nicotine dependence, unspecified, uncomplicated DLP: 1053 ultrasound 02/25/2013 mGY*cm COMPARISON: None available. TECHNIQUE: Noncontrast CT of the abdomen and pelvis is performed followed by split bolus contrast-enhanced images using 85 mL Omnipaque 350 contrast. Postcontrast imaging is performed during the combined nephrogram and excretion phase. Sagittal and coronal reformatted images were obtained on the technologist's workstation for both the precontrast and postcontrast phases. This CT examination was performed using dose optimization techniques as appropriate, variously including the following: *Automated exposure control *Adjustment of mA and/or kV according to patient size (this includes techniques or standardized protocols for targeted exams where dose is matched to indication/reason for exam; i.e. extremities or head) *Use of iterative reconstruction technique FINDINGS: LUNG BASES: The visualized lung bases are unremarkable. LIVER, GALLBLADDER, AND BILIARY TREE: The liver is normal in size, shape, and attenuation. No focal hepatic lesion or biliary ductal dilatation is present. The gallbladder is unremarkable with no evidence of radiopaque gallstones, gallbladder wall thickening, or obvious pericholecystic inflammatory changes. PANCREAS: Unremarkable. SPLEEN: Unremarkable. ADRENAL GLANDS: Unremarkable. KIDNEYS AND URETERS: Small faint calcifications are evident in the right, possibly left kidney that could represent mild medullary nephrocalcinosis and/or early stone formation. There is no hydronephrosis or nephrolithiasis. There is symmetric concentration and excretion of contrast from both ureters which are not dilated. BLADDER: Unremarkable. GASTROINTESTINAL TRACT: The small and large bowel are unremarkable. The appendix is unremarkable. ABDOMINAL WALL: No significant hernia is appreciated. LYMPH NODES: Normal. VASCULAR: Unremarkable. PELVIC VISCERA: Unremarkable. OSSEUS STRUCTURES: Unremarkable. CT/CT urogram IMPRESSION: Small faint calcifications are evident in the right, and possibly the left kidney that could represent mild medullary nephrocalcinosis and/or early stone formation. Electronically signed by: Crow Siddiqi MD 11/14/2024 02:00 PM EDT
--- OUTSIDE RECORDS SUMMARY | 2024-11-14 13:39 | XMS_ITS | Clinical Summary ---
Author Organization [facility] Address [address] [place] [address] Phone Care Team Providers Care Medical Services Assistant Name Role Phone Physician, No Pcp Primary [...] 84 03/21/2024 11:16 PM EST Temperature 36.8 C (98.2 F) 03/21/2024 11:16 PM EST Respiratory Rate 16 03/21/2024 11:16 PM EST [...] 5 Years) and At-Risk Patients (6 to 49 Years) (1 of 2 - PCV) 2012 Cervical Cancer Screening: P ap Smear 2014 Cholesterol Screening (Lipid Panel) 05/10/2021 HIV Screening 05/10/2021 Hepatitis C Screening 05/10/2021 Social Influencers of Health Screening 05/10/2021 COVID-19 Vaccine (1 - 2023-2 5 season) 2023 Depression Screening 03/22/2024 Influenza Vaccine (#1) 2024 DTaP,Tdap,and Td Vaccines (3 - Td [...] to complete this topic Insurance [place] - [place] Care Teams Medical Services Assistant Relationship Specialty Start Date End Date Physician, No Pcp PCP - General 06/06/21
[2024-11-14] MEDS: iohexoL 350 MG/ML 100 ML INFUS..BTL IV (13:49)
== END 2024-11-14 12:57 | disposition home or self-care (01) ==
LOC: HO.CT 12:56
PROVIDERS: PCP Internal Medicine; Visit Provider Nurse Practitioner Family
DX: R31.0 Gross hematuria (principal); F17.200 Nicotine dependence, unspecified, uncomplicated
CPT/HCPCS: 74178; Q9967

== ENCOUNTER → 2024-11-14 12:57 | Outpatient (BNV) | payer OTHER, SELFPAY | PROVIDERS: PCP Internal Medicine; Visit Provider Radiology Diagnostic Radiology | DX: N20.0 Calculus of kidney (principal) | CPT/HCPCS: 74178 ==

== ENCOUNTER 2024-11-15 14:38 | Outpatient (REF) | payer OTHER, SELFPAY ==
--- OUTSIDE RECORDS SUMMARY | 2024-11-15 15:33 | XMS_ITS | Clinical Summary ---
Author Organization [facility] Address [address] [place] [address] Phone Care Team Providers Care Mink Farmer Name Role Phone Physician, No Pcp Primary [...] to complete this topic Insurance [place] Care Teams Mink Farmer Relationship Specialty Start Date End Date Physician, No Pcp PCP - General 06/06/21
[2024-11-15 15:49] LABS: Alanine Aminotransferase 37 U/L (0-31); Albumin Level 4.5 g/dL (3.5-5.0); Alkaline Phosphatase 60 U/L (39-117); Aspartate Amino Transferase 26 U/L (5-31); Blood Urea Nitrogen 6 mg/dL (9-16); Estimated Glomerular Filt Rate > 60; Gamma Glutamyl Transpeptidase 35 U/L (7-33); Total Protein 7.2 g/dL (6.5-8.0)
[2024-11-16 04:23] LABS: HBS Num1 0.00 mIU/mL (0-7.99); HBc Num1 0.11 S/CO (0.00-0.79); HBsAGNum1 0.40 S/CO (0.00-0.99); Hepatitis A Antibody IgM 0.25 Index (0-0.79); Hepatitis B Surface Antigen Negative (Negative); ~HepC Num1 0.12 S/CO (0.00-0.79); ~Hepatitis A Antibody IgM Nonreactive (Nonreactive); ~Hepatitis B Surface Antibody NONREACTIVE (Nonreactive); ~Hepatitis C Antibody Nonreactive (Nonreactive)
== END 2024-11-15 14:39 | disposition home or self-care (01) ==
LOC: HO.LAB 14:38
PROVIDERS: PCP Internal Medicine; Visit Provider Nurse Practitioner Family
DX: N32.81 Overactive bladder (principal); N39.41 Urge incontinence; R74.01 Elevation of levels of liver transaminase levels; R31.29 Other microscopic hematuria; R80.9 Proteinuria, unspecified; F17.200 Nicotine dependence, unspecified, uncomplicated; Z13.89 Encounter for screening for other disorder; Z11.59 Encounter for screening for other viral diseases; Z79.899 Other long term (current) drug therapy
CPT/HCPCS: 36415; 80076; 81003; 82565; 82977; 84520; 86704; 86706; 86709; 86803; 87340; 88112; 99212

== ENCOUNTER 2024-11-15 15:00 | Outpatient (AMB) | payer OTHER, SELFPAY ==
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
== END 2024-11-15 15:49 | disposition home or self-care (01) ==
LOC: HO.HUSH 15:01
PROVIDERS: PCP Internal Medicine; Visit Provider Nurse Practitioner Family
DX: R80.9 Proteinuria, unspecified (principal); N39.41 Urge incontinence; R31.29 Other microscopic hematuria; Z13.9 Encounter for screening, unspecified
CPT/HCPCS: 99214